=== PATIENT | male | born 1995 | race Hispanic/Latino ===

== ENCOUNTER 2021-03-19 09:32 | Emergency (ER) | payer SELFPAY ==
[2021-03-19] MEDS ORDERED: Boostrix 0.5 ML (Tdap) VIAL ONE (09:50)
[2021-03-19] MEDS ORDERED: Morphine 4 MG/ML VIAL ONE (10:39)
[2021-03-19] MEDS ORDERED: Ondansetron ODT 4 MG TAB ONE (10:39)
[2021-03-19 10:44] LABS: #Basophils 0.1 thou/uL (0.0-0.2); #Eosinphils 0.1 thou/uL (0.0-0.7); #Lymphocytes 1.6 thou/uL (1.20-3.40); #Monocytes 0.5 thou/uL (0.11-0.59); %Basophils 1.2 % (0.0-1.0); %Eosinophils 1.2 % (0.0-10.0); %Lymphocytes 19.4 % (21.0-51.0); %Monocytes 5.7 % (0.0-10.0); %Neutrophils 72.5 % (42.0-75.0); Hemoglobin 15.9 g/dL (14.0-18.0); Mean Corpuscular HGB CONC 32.6 g/dL (32.0-36.0); Mean Corpuscular Hemoglobin 30.7 pg (27.0-31.0); Mean Corpuscular Volume 94.2 fL (78.0-98.0); Mean Platelet Volume 8.6 fL (7.4-10.4); Platelet Count 242 thou/uL (130-400); RBC Distribution Width 12.5 % (11.5-14.5); Red Blood Cell (RBC) Count 5.19 mill/uL (4.70-6.10); White Blood Cell (WBC) Count 8.3 thou/uL (4.8-10.8)
[2021-03-19 10:53] LABS: INR-International Normal Ratio 0.9; Prothrombin Time 12.4 sec (12.0-14.7)
[2021-03-19 10:54] LABS: PTT 31.2 sec (22.9-36.1)
[2021-03-19 11:04] LABS: ALT (SGPT) 38 U/L (8-55); AST (SGOT) 31 U/L (5-34); Albumin 4.4 g/dL (3.5-5.0); Alkaline Phosphatase 82 U/L (40-110); Anion Gap 14 mmol/L (10-20); BUN (Urea Nitrogen) 13 mg/dL (8.9-20.6); Bilirubin, Total 0.9 mg/dL (0.2-1.2); Calc. Creatinine Clearance 0 mL/min (70-130); Calcium 10.2 mg/dL (7.8-10.44); Carbon Dioxide 23 mmol/L (22-29); Chloride 106 mmol/L (98-107); Globulin 3.4 g/dL (2.4-3.5); Glucose 126 mg/dL (70-105); Potassium 4.1 mmol/L (3.5-5.1); Protein, Total 7.8 g/dL (6.0-8.3); Sodium 139 mmol/L (136-145)
[2021-03-19] MEDS ORDERED: CEFAZOLIN 1 GM VIAL ONE (11:26)
[2021-03-19] MEDS ORDERED: Sterile Water 100 ML ONE (11:29)
[2021-03-19 11:43] LABS: SARS-CoV-2 NAA Rapid Test Not Detected (NotDetected)
[2021-03-19] MEDS ORDERED: Nicotine 7 MG PATCH ONE (12:42)
[2021-03-19] MEDS ORDERED: Bupivacaine PF 0.5% 30 ML VIAL ONE (15:25)
[2021-03-19] MEDS ORDERED: Neomycin-Polymyxin 1 ML AMP ONE (15:25)
[2021-03-19] MEDS ORDERED: Fentanyl 100 MCG/2 ML VIAL ONE ×3 (15:43→17:51)
[2021-03-19] MEDS ORDERED: HYDROcodone/Acetaminophen 5/325 mg Tablet ONE (17:36)
== END 2021-03-19 12:45 | disposition home or self-care (01) ==
LOC: MADERS 09:32
DX: S50.352A Superficial foreign body of left elbow, initial encounter (principal); R20.2 Paresthesia of skin; R20.0 Anesthesia of skin; F17.200 Nicotine dependence, unspecified, uncomplicated; Z20.822 Contact with and (suspected) exposure to COVID-19; W45.0XXA Nail entering through skin, initial encounter
CPT/HCPCS: 36415; 80053; 85025; 85610; 85730; 90471; 90715; 96372; J0690; J2270; J3010; Q0162; S0020; U0002